=== PATIENT | male | born 1985 ===

== ENCOUNTER 2020-10-22 08:15 | Outpatient (CLI) | payer BC ==
[2020-10-22 08:52] LABS: Basophils % (Auto) 0.6 % (0.0-1.8); Eosinophils # (Auto) 0.3 K/mm3 (0.0-0.4); Eosinophils % (Auto) 5.9 % (0.0-4.3); Hematocrit 49.8 % (35.5-45.6); Hemoglobin 16.5 gm/dl (11.8-15.2); Lymphocytes # (Auto) 1.6 K/mm3 (1.2-5.4); Lymphocytes % (Auto) 35.4 % (13.4-35.0); Mean Corpuscular HGB Conc 33 % (32-34); Mean Corpuscular Volume 81 fl (84-94); Monocytes # (Auto) 0.4 K/mm3 (0.0-0.8); Monocytes % (Auto) 9.3 % (0.0-7.3); Platelet Count 182 K/mm3 (140-440); Red Blood Count 6.15 M/mm3 (3.65-5.03); Red Cell Distribution Width 13.9 % (13.2-15.2)
[2020-10-22 09:06] LABS: Alanine Aminotransferase 30 units/L (7-56); BUN/Creatinine Ratio 16; Blood Urea Nitrogen 21 mg/dL (9-20); Calcium 9.9 mg/dL (8.4-10.2); Chol/HDL Ratio 4.63 %; HDL Cholesterol 46 mg/dL (40-59); Hemolysis Index 6; LDL Cholesterol,Direct 176 mg/dL (50-130)
== END 2020-10-22 08:16 | disposition home or self-care (01) ==
LOC: LAB 08:15
DX: Z00.00 Encounter for general adult medical examination without abnormal findings (principal); Z12.5 Encounter for screening for malignant neoplasm of prostate; Z13.1 Encounter for screening for diabetes mellitus; E55.9 Vitamin D deficiency, unspecified; E56.9 Vitamin deficiency, unspecified; Z13.220 Encounter for screening for lipoid disorders
CPT/HCPCS: 36415; 80053; 80061; 82306; 82607; 82670; 83036; 84153; 84443; 85025